=== PATIENT | female | born 1980 | race Caucasian/White ===

== ENCOUNTER 2017-02-26 08:52 | Day surgery (SDC) | payer MEDICARE, OTHER ==
[~2017-02-26] VITALS: Ht 157.5 cm; Wt 83.9 kg
[~2017-02-26 08:52] MED LIST: ALBU90OI61; BETA.05TCA; CLARITIN10 MG; DEXT10ER; FLONASE ALLERG9.9 ML; METCAR500; MUPI1NAS; PANT40; PROBIOTIC1 EAC1; Prozac20 MG; Purinethol50 MG; VOL-PLUS TABLE1 EAC1; ZYRTEC10 M1
[2017-02-26] MEDS ORDERED: DOXY100 (09:27)
[2017-02-26] MEDS ORDERED: ACET120S (09:27)
== END 2017-02-26 11:20 | disposition home or self-care (01) ==
LOC: ORSCSDS 08:52
DX: K50.90 Crohn's disease, unspecified, without complications (principal); K21.9 Gastro-esophageal reflux disease without esophagitis; K29.70 Gastritis, unspecified, without bleeding; K64.8 Other hemorrhoids; Z80.0 Family history of malignant neoplasm of digestive organs; M79.7 Fibromyalgia; R11.2 Nausea with vomiting, unspecified; Z79.899 Other long term (current) drug therapy
CPT/HCPCS: 88305; 88342; J1980